=== PATIENT | female | born 1935 | race Caucasian/White ===

== ENCOUNTER 2017-02-21 11:41 | Inpatient (IN) | payer MEDICARE, BC ==
[~2017-02-21] VITALS: Ht 149.9 cm; Wt 43.4 kg
--- NOTE | ~2017-02-21 | DS ---
Unit #: [id number] #: [id number] Patient: GONZALO SEPULVEDA [id number] [address] [address] [id number] MR#: [id number] NAME: GONZALO SEPULVEDA ROOM: 470 Age: 81 Sex: F Admission Date: 02/21/2017 : 1935 Discharge Date: 02/24/2017 Attending Physician: Pedrito Arroyo M.D. Primary Care Physician: Elaine Brown M.D. DISCHARGE SUMMARY ADMITTING DIAGNOSIS Right proximal humerus fracture dislocation. DISCHARGE DIAGNOSIS Right proximal humerus fracture dislocation, status post reduction. CHRONIC PROBLEMS Include: 1. Hypothyroidism. 2. Hyperlipidemia. 3. Incontinence. 4. Dementia. SERVICE Orthopedics. CURRENT PHYSICIAN Cruz. PROCEDURES She underwent a right reverse shoulder arthroplasty and right shoulder biceps tenodesis on February 21, 2017. HISTORY AND PHYSICAL EXAM Ms. Sepulveda is an 81-year-old female who slipped and fell while exiting out of her bathtub. She was found to have a proximal humeral fracture dislocation. The position of the fracture precluded a closed management with any reasonable expectation of pain relief or function. Therefore, a reverse shoulder arthroplasty was performed. She did well during the procedure without any complications. Her hospital stay was uncomplicated. On the day of discharge, she was doing well. Only complaint of a slight cough. Her pain was well controlled as well. Vitals were stable. Temperature of 97.8, pulse of 77, oxygen sat 97%, blood pressure of 97/69. Right upper extremity was in a sling. Dressing was clean, dry and intact and she was neurovascularly intact distally. HOSPITAL COURSE Again, she had a fairly uneventful hospital course. She did require oxygen and was able to wean off that as her stay went on. She is a rather frail, elderly woman who is (1) . No concerns for any infection at this time. DISCHARGE CONDITION Unit #: [id number] #: [id number] Patient: GONZALO SEPULVEDA Good. DISPOSITION Discharge to rehab. MEDICATIONS Please see Med Rec. INSTRUCTIONS Continue out of bed to chair. Continue incentive spirometry 10 times per hour while awake. Continue to wean off oxygen, to keep her O2 sats above 93%. She will follow up with Dr. Arroyo after her rehab discharge. Dictated by... PATRICA GONZALEZATORAlin for Pedrito Arroyo M.D. CHAR/gilmer TD: 02/24/2017 09:45 JOB #: [id number] DISCHARGE SUMMARY Page 1 of 1 X X DISCHARGE SUMMARY
--- NOTE | ~2017-02-21 | CR230 ---
[facility] A Service of [facility] & [facility] RADIOLOGY TEXT RESULTS PATIENT: GONZALO DODSON LOCATION: C4B 454-01 : [birth year] UNIT #: [id number] AGE: [address]: Pedrito Arroyo MD SEX: F ORDER DR: [id number] [facility] [address] [place], [place] [address] [id number] MR#: [id number] Acc #: [id number] NAME: GONZALO DODSON : 1935 SEX: F STUDY DATE/TIME: 02/21/2017 18:51 UNIT: [facility] ROOM: [facility] STUDY DESCRIPTION: CR Shoulder Min 2 View Rt Attending Physician: Pedrito Arroyo M.D. Ordering Physician: Pedrito Arroyo M.D. Primary Care Physician: Elaine Brown M.D. MEDICAL IMAGING REPORT This report is preliminary unless electronic signature is present EXAM Right shoulder, 2 views , 02/21/2017, 1851 hours. CLINICAL HISTORY Proximal humeral fracture, postop shoulder replacement today. COMPARISON 02/20/2017 FINDINGS Two views of the right shoulder are performed. Patient has undergone a shoulder replacement with a screwed ball component at the glenoid and a cemented cup component at the humerus. The alignment is anatomic. A surgical drain is present. IMPRESSION Postop change right shoulder replacement with anatomic alignment. No acute fracture seen. A surgical drain is present. Dictated by... Deyanira Lazcano M.D. THIS IS AN ELECTRONICALLY VERIFIED REPORT Deyanira Lazcano M.D. at 02/23/2017 9:40 AM ZACK/sophia TD: 02/22/2017 08:29 JOB #: [id number] MEDICAL IMAGING REPORT Page 1 of 1 COPY
--- NOTE | ~2017-02-21 | EKG ---
PATIENT: GONZALO DODSON UNIT #: [id number] Ventricular Rate: 70 BPM Atrial Rate: 70 BPM P-R Interval: 220 ms QRS Duration: 80 ms Q-T Interval: 388 ms QTC Calculation(Bezet): 419 ms P Parkton: 79 degrees Calculated R Parkton: 22 degrees Calculated T Parkton: 57 degrees Diagnosis Line: Sinus rhythm with 1st degree A-V block Diagnosis Line: Otherwise normal ECG Diagnosis Line: No previous ECGs available Diagnosis Line: Confirmed by ALICE REY MD ([id number]) on 02/22/2017 Diagnosis Line: 7:07:09 PM INTERPRETING MD: KRISSY MCKEON
--- NOTE | ~2017-02-21 | OR ---
Unit #: [id number] #: [id number] Patient: GONZALO SEPULVEDA [id number] [address] [address] [id number] I MR#: [id number] NAME: GONZALO SEPULVEDA ROOM: 454 Date of Procedure: 02/21/2017 Admission Date: 02/21/2017 Surgeon: Pedrito Arroyo M.D. : 1935 Attending Physician: Pedrito Arroyo M.D. Primary Care Physician: Elaine Brown OPERATIVE REPORT PREOPERATIVE DIAGNOSIS Right proximal humerus fracture dislocation. POSTOPERATIVE DIAGNOSIS Right proximal humerus fracture dislocation. PROCEDURES PERFORMED 1. Right reverse shoulder arthroplasty. 2. Right shoulder biceps tenodesis. 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 IMPLANTS 1. DJO Surgical size 10 cemented AltiVate stem with a 32 neutral humeral socket liner. 2. DJ surgical P2 base plate with a 32, -4 glenosphere. ESTIMATED BLOOD LOSS 150 mL. DRAINS Medium Hemovac x1. COMPLICATIONS None apparent. INDICATIONS FOR PROCEDURE Ms. Sepulveda is an 81-year-old female, who sustained an injury to her right shoulder during a slip and fall while exiting the bathtub. She was found to have a proximal humerus fracture dislocation. The head was rotated nearly 180 degrees laterally away from the glenoid. The shaft was displaced anteriorly. The position of the fracture precluded closed management with any reasonable expectation of pain relief or function. We discussed reverse shoulder arthroplasty. She elected to proceed. DESCRIPTION OF PROCEDURE The patient was identified in the preoperative holding area. The operative site was marked. A regional block was performed. The patient was brought to the operating room and placed supine on the operating table and general anesthetic was induced. The patient was positioned in the beach-chair position. The right upper extremity was then prepped and Unit #: [id number] #: [id number] Patient: GONZALO SEPULVEDA draped in sterile fashion. A standard deltopectoral approach was performed. Dissection was carried down to the deltopectoral interval. The subdeltoid space was developed as was the subcoracoid space. Upon dissecting through the deeper interval and opening the clavipectoral fascia, we encountered early callus formation. This was debrided away and then we had direct visualization of the inferior aspect of the humeral head which was facing laterally. The shaft was translated anteriorly. There was a fragment which was intact of greater tuberosity and lesser tuberosity. The inferior and lateral to this, was a displaced head segment. This was retrieved with a Silvana clamp. We then divided the greater tuberosity from the lesser tuberosity with an osteotome easily. It should be noted that there was a separate greater tuberosity fracture in addition to this. Additionally, prior to dividing the segment of greater tuberosity from the lesser tuberosity, we had opened the bicipital sheath. The biceps was hemorrhagic and partially torn from the fracture. A biceps tenodesis was then performed to the superior border of the pectoralis major tendon. We then divided the greater from the lesser tuberosity as noted above. The shaft was then exposed. Any remaining bone and marrow elements were removed and the shaft sized. Once we had adequately repaired this, we then turned attention to the glenoid. The removal of the head afforded easy end-on exposure to the glenoid. We removed the labrum and then drilled the centering hole followed by insertion of the reaming tap. We reamed to the desired depth with a starter and small reamers. We inserted a standard base plate. We then placed 4 peripheral locking screws followed by the 32, -4 glenosphere and set screw. The humerus was brought back into the operative field. We had placed tagging sutures in the greater tuberosity including one FiberWire and two FiberTapes in segment to the greater tuberosity. We had one FiberTape in the lesser tuberosity. The real stem was opened. The canal was prepared for cementing. The cement restrictor was placed and the real stem cemented with a hybrid technique with cement distally and bone graft proximally. The shoulder was trialed and we selected a 32, standard polyethylene humeral socket liner. The shoulder was then reduced. The tuberosities were repaired back to the stem. The greater tuberosity was repaired with two FiberTapes to the stem. The lesser tuberosity was then repaired next with one FiberTape. The cerclage suture from the medial suture hole of the anchor was then tied around the circumference of the greater and lesser tuberosities. The tuberosities were then repaired to one another and up through the rotator interval with a FiberWire. The arm was taken through range of motion and the tuberosity repair was stable. The wound was then irrigated and a subdeltoid drain was placed. The wound was closed with 0 Vicryl, 2-0 Vicryl, and running Monocryl in the skin. Steri-Strips and sterile dressings were applied. DISPOSITION Stable to the recovery room. Dictated by... Pedrito Arroyo M.D. Unit #: [id number] #: [id number] Patient: GONZALO SEPULVEDA [facility]/lizeth TD: 02/22/2017 11:46 JOB #: [id number] OPERATIVE REPORT Page 1 of 1 X Pedrito Arroyo MD X PROCEDURE OPERATIVE NOTE
[~2017-02-21 11:41] MED LIST: ASPIRIN EC81 M1 PO; DITROPAN XL5 M2 PO; DONEPEZIL HCL10 MG PO; INDAPAMIDE2.5 M1 PO; LEVOTHYROXINE50 MCG PO; LINZESS145 MCG PO; MEMANTINE HCL10 MG PO; POTASSIUM CHLO10 MEQ PO; SIMVASTATIN20 MG PO
[2017-02-21 12:54] LABS: BASOPHIL# 0.1 X10e3 (0-0.3); BASOPHIL% 0.7 % (0-2.5); EOSINOPHIL# 0.1 X10e3 (0-0.7); EOSINOPHIL% 0.7 % (0.0-7.0); HEMATOCRIT 32.3 % (35.0-45.0); HEMOGLOBIN 10.9 gm/dL (12.0-16.0); LYMPHOCYTE# 1.3 X10e3 (1.0-3.5); LYMPHOCYTE% 9.7 % (17.0-45.0); MEAN CELL VOLUME 94.2 FL (83-96); MEAN CORPUSCULAR HEMOGLOBIN 31.7 PG (28-34); MEAN CORPUSCULAR HGB CONC 33.7 g/dL (30-36); MEAN PLATELET VOLUME 8.1 FL (6.5-11.5); MONOCYTE# 1.2 X10e3 (0-1.0); MONOCYTE% 9.2 % (3.0-12.0); NEUTROPHIL# 10.6 X10e3 (1.5-7.1); NEUTROPHIL% 79.7 % (40-75); PLATELET COUNT 415 X10e3 (140-420); RED BLOOD COUNT 3.43 X10e (3.90-5.30); RED CELL DISTRIBUTION WIDTH 15.1 % (11.0-15.5); WHITE BLOOD COUNT 13.3 X10e3 (4.0-10.5)
[2017-02-21 12:55] LABS: DIFF IND NO
[2017-02-21 13:23] LABS: BUN/CREATININE RATIO 22.85; CALCIUM SERUM 9.1 mg/dL (8.4-10.2); CREATININE SERUM 1.4 mg/dL (0.6-1.4); GLOM FILT RATE Estimated 34.9 mL/min (>60); POTASSIUM 3.9 mmol/L (3.5-5.1)
[2017-02-22 09:08] LABS: BASOPHIL# 0.1 X10e3 (0-0.3); BASOPHIL% 0.4 % (0-2.5); HEMATOCRIT 28.5 % (35.0-45.0); HEMOGLOBIN 9.4 gm/dL (12.0-16.0); LYMPHOCYTE# 1.8 X10e3 (1.0-3.5); LYMPHOCYTE% 12.5 % (17.0-45.0); MEAN CELL VOLUME 96.5 FL (83-96); MEAN CORPUSCULAR HEMOGLOBIN 31.8 PG (28-34); MEAN PLATELET VOLUME 7.7 FL (6.5-11.5); MONOCYTE# 1.5 X10e3 (0-1.0); MONOCYTE% 10.3 % (3.0-12.0); NEUTROPHIL% 76.8 % (40-75); PLATELET COUNT 402 X10e3 (140-420); RED BLOOD COUNT 2.95 X10e (3.90-5.30); RED CELL DISTRIBUTION WIDTH 14.6 % (11.0-15.5); WHITE BLOOD COUNT 14.3 X10e3 (4.0-10.5)
[2017-02-22 09:12] LABS: DIFF IND NO
[2017-02-23 02:27] LABS: BASOPHIL% 0.4 % (0-2.5); EOSINOPHIL# 0.2 X10e3 (0-0.7); EOSINOPHIL% 1.3 % (0.0-7.0); HEMATOCRIT 29.1 % (35.0-45.0); HEMOGLOBIN 9.4 gm/dL (12.0-16.0); LYMPHOCYTE# 1.6 X10e3 (1.0-3.5); MEAN CELL VOLUME 97.6 FL (83-96); MEAN CORPUSCULAR HEMOGLOBIN 31.7 PG (28-34); MEAN CORPUSCULAR HGB CONC 32.5 g/dL (30-36); MEAN PLATELET VOLUME 7.4 FL (6.5-11.5); MONOCYTE# 1.5 X10e3 (0-1.0); MONOCYTE% 11.2 % (3.0-12.0); NEUTROPHIL# 9.7 X10e3 (1.5-7.1); NEUTROPHIL% 75.1 % (40-75); PLATELET COUNT 374 X10e3 (140-420); RED BLOOD COUNT 2.98 X10e (3.90-5.30); WHITE BLOOD COUNT 12.9 X10e3 (4.0-10.5)
[2017-02-23 02:28] LABS: DIFF IND NO
== END 2017-02-24 13:00 | DRG 483 ==
LOC: CSUR 11:41 → CPACUOF 16:28 → C4B 16:28 → CSUR 16:28 → CPACUOF 18:00 → C4B 19:30 → C4C 02-23 16:18
PROVIDERS: Orthopaedic Surgery
PROC: 0LS30ZZ Reposition Right Upper Arm Tendon, Open Approach (ICD-10-PCS; 2017-02-21)
PROC: 0RRJ00Z Replacement of Right Shoulder Joint with Reverse Ball and Socket Synthetic Substitute, Open Approach (ICD-10-PCS; principal; 2017-02-21 14:00)
DX: S42.201A Unspecified fracture of upper end of right humerus, initial encounter for closed fracture (principal); F03.90 Unspecified dementia, unspecified severity, without behavioral disturbance, psychotic disturbance, mood disturbance, and anxiety; W18.2XXA Fall in (into) shower or empty bathtub, initial encounter; Y93.E1 Activity, personal bathing and showering; Y92.012 Bathroom of single-family (private) house as the place of occurrence of the external cause; E03.9 Hypothyroidism, unspecified; E78.5 Hyperlipidemia, unspecified; R32 Unspecified urinary incontinence; Z90.49 Acquired absence of other specified parts of digestive tract
CPT/HCPCS: 73030; 80048; 82947; 85025; 93005; 94760; 94762; 97110; 97161; 97530; C1713; C1776; G8978-GP; G8979-GP; J0330; J1100; J2250; J2270; J2370; J2405; J2710; J2795; J3010; J3370